=== PATIENT | male | born 1965 | race African-American/Black ===

== ENCOUNTER 2018-01-13 11:53 | Emergency (ER) | payer OTHER ==
[~2018-01-13] VITALS: Ht 170.2 cm; Wt 108.4 kg
[2018-01-13 16:24] VITALS: BP 152/70
== END 2018-01-13 16:15 | disposition home or self-care (01) ==
LOC: ER 11:53 → FSED 16:15
DX: R05 Cough (principal); J00 Acute nasopharyngitis [common cold]; J45.909 Unspecified asthma, uncomplicated; I10 Essential (primary) hypertension; I50.9 Heart failure, unspecified
CPT/HCPCS: 99282